=== PATIENT | female | born 1965 | race Caucasian/White ===

== ENCOUNTER → 2017-03-01 | Outpatient (REF) | payer OTHER ==
[~2017-03-01] MED LIST: /MOM400 PO; ALB2.5NEB INH; CREAM FOR PSORIASIS TOP; FLEEENE4 PR; IPRA2IN INH; NYAM10003 TOP; NYST1000 MT; OMEP20CA3 PO; PRED1TAB32 PO; ZOLO50TA PO
== END ==
LOC: M LAB REF 14:07
PROVIDERS: ATTEND Physician Assistant Medical
DX: R53.81 Other malaise (principal)

== ENCOUNTER → 2021-01-23 | Outpatient (CLI) | payer OTHER ==
[~2021-01-23] MED LIST changes: -/MOM400 PO; +DRIS50003 PO; +FISH1000 PO; +MILK10SU PO; +OMEP1CAP73 PO; -OMEP20CA3 PO; +SERT25TA21
== END ==
LOC: M LABSMTC 09:29
PROVIDERS: ATTEND Anesthesiology
DX: Z01.818 Encounter for other preprocedural examination (principal); Z20.828 Contact with and (suspected) exposure to other viral communicable diseases

== ENCOUNTER 2021-01-28 08:21 | Day surgery (SDC) | payer OTHER ==
[~2021-01-28] VITALS: Ht 175.3 cm; Wt 113.4 kg
[~2021-01-28 08:21] MED LIST changes: +MIDAZOLAM INJ 2MG/2ML VIAL (J2250 PER 1MG) As Ordered ONE; +cefTRIAXone SOD 1 GM in D5W MINI-BAG PLUS 50 ML IV ONE; +fentaNYL 100 MCG/2 ML INJECTION As Ordered ONE
[2021-01-28] MEDS ORDERED: propofoL 200 MG/20 ML VIAL As Ordered ONE ×2 (08:22→09:56)
[2021-01-28] MEDS ORDERED: LIDOCAINE 2% 5ML JELLY UROJET As Ordered ONE (08:51)
[2021-01-28] MEDS ORDERED: LIDOCAINE 2% 100MG/5ML SDV (FOR ANES.) As Ordered ONE (09:23)
[2021-01-28] MEDS ORDERED: MIDAZOLAM INJ 2MG/2ML VIAL (J2250 PER 1MG) As Ordered ONE (09:25)
[2021-01-28] MEDS ORDERED: ONDANSETRON 4MG/2ML VIAL As Ordered ONE (09:34)
[2021-01-28] MEDS ORDERED: FLOM0.4C39 PO (09:46)
[2021-01-28] MEDS ORDERED: PERC5TAB12 PO (09:46)
[2021-01-28 10:30] VITALS: BP 110/68
== END 2021-01-28 10:57 | disposition home or self-care (01) ==
LOC: M SDC 08:21
PROVIDERS: ATTEND Urology
DX: N20.0 Calculus of kidney (principal); K21.9 Gastro-esophageal reflux disease without esophagitis; L40.8 Other psoriasis; F41.9 Anxiety disorder, unspecified; F32.9 Major depressive disorder, single episode, unspecified; F17.218 Nicotine dependence, cigarettes, with other nicotine-induced disorders; F12.10 Cannabis abuse, uncomplicated; Z79.899 Other long term (current) drug therapy
CPT/HCPCS: 50590; 52332; 74018; C1769; C2617; J2250; J2405; J3010

== ENCOUNTER → 2021-02-25 | Outpatient (REF) | payer OTHER ==
[~2021-02-25] MED LIST changes: +FLOM0.4C39 PO; -MIDAZOLAM INJ 2MG/2ML VIAL (J2250 PER 1MG) As Ordered ONE; +PERC5TAB12 PO; -cefTRIAXone SOD 1 GM in D5W MINI-BAG PLUS 50 ML IV ONE; -fentaNYL 100 MCG/2 ML INJECTION As Ordered ONE
== END ==
LOC: M SMT 16:59
PROVIDERS: ATTEND Urology
DX: N20.0 Calculus of kidney (principal)

== ENCOUNTER → 2022-08-30 | Outpatient (REF) | payer BC ==
[2022-08-30 15:39] LABS: APPEARANCE, URINE CLEAR (CLEAR); BACTERIA, URINE AUTO NEGATIVE (NEGATIVE); BILIRUBIN, URINE AUTO NEGATIVE (NEGATIVE); BLOOD, URINE BLOOD 2+ (NEGATIVE); COLOR, URINE YELLOW (YELLOW); GLUCOSE, URINE (UA) AUTO NEGATIVE (NEGATIVE); KETONE, URINE AUTO NEGATIVE (NEGATIVE); LEUKOCYTE ESTERASE, URINE AUTO NEGATIVE (NEGATIVE); NITRITE, URINE AUTO NEGATIVE (NEGATIVE); PROTEIN, URINE AUTO NEGATIVE (NEGATIVE); RBC, URINE AUTO 6 /HPF (0-3); SPECIFIC GRAVITY URINE AUTO 1.016 (1.002-1.035); SQUAMOUS EPITHELIAL CELL UR AU 2 /HPF (0-6); UROBILINOGEN, URINE AUTO 0.2 mg/dL (0.0-2.0); WBC, URINE AUTO 0 /HPF (0-3)
== END ==
LOC: M SMT 13:01
PROVIDERS: ATTEND Physician Assistant
DX: R10.9 Unspecified abdominal pain (principal)

== ENCOUNTER → 2022-09-07 | Outpatient (CLI) | payer BC | LOC: M PLAIMG 09:00 | PROVIDERS: ATTEND Physician Assistant | DX: R10.9 Unspecified abdominal pain (principal); K57.30 Diverticulosis of large intestine without perforation or abscess without bleeding ==

== ENCOUNTER 2024-01-31 09:58 | Day surgery (SDC) | payer BC ==
[~2024-01-31] VITALS: Ht 175.3 cm; Wt 95.2 kg
[~2024-01-31 09:58] MED LIST changes: +NS 250 ML IV ONE; +OMEG10002 PO; -SERT25TA21; +SERT25TA21 PO
[2024-01-31] MEDS ORDERED: propofoL 200 MG/20 ML VIAL As Ordered ONE (11:00)
[2024-01-31 11:08] VITALS: TEMP 97.9
[2024-01-31 11:32] VITALS: BP 104/59; O2SAT 97
== END 2024-01-31 11:35 | disposition home or self-care (01) ==
LOC: M OPP 09:58
PROVIDERS: ATTEND Internal Medicine Gastroenterology
DX: K52.9 Noninfective gastroenteritis and colitis, unspecified (principal); Z86.0100 Personal history of colon polyps, unspecified; K64.0 First degree hemorrhoids; K57.30 Diverticulosis of large intestine without perforation or abscess without bleeding; K21.9 Gastro-esophageal reflux disease without esophagitis; M19.90 Unspecified osteoarthritis, unspecified site; F41.9 Anxiety disorder, unspecified; F32.A Depression, unspecified; F12.20 Cannabis dependence, uncomplicated

== ENCOUNTER → 2025-02-11 | Outpatient (CLI) | payer BC ==
[~2025-02-11] MED LIST changes: +E-Z-GAS II EFFERVESCENT PACKET (SODIUM BICARB./CITRIC ACID/SIMETHICONE) As Ordered ONE; +E-Z-HD 98% w/w 340 GM SUSP BTL As Ordered ONE; +E-Z-PAQUE 96% w/w SUSP 176 GM BTL As Ordered ONE; -FLOM0.4C39 PO; -NS 250 ML IV ONE; +TAMS-18 PO
== END ==
LOC: M RAD 10:37
PROVIDERS: ATTEND Internal Medicine Gastroenterology
DX: R19.7 Diarrhea, unspecified (principal)